=== PATIENT | female | born 1980 | race Caucasian/White ===

== ENCOUNTER → 2016-06-09 | Outpatient (CLI) | payer BC | LOC: LAB 15:37 | PROVIDERS: ATTEND Nurse Practitioner Women's Health | DX: Z00.00 Encounter for general adult medical examination without abnormal findings (principal); N92.6 Irregular menstruation, unspecified; Z79.899 Other long term (current) drug therapy | CPT/HCPCS: 36415; 80051; 82310; 83735; 87491; 87591 ==